=== PATIENT | male | born 2005 | race Caucasian/White ===

== ENCOUNTER 2025-03-31 21:59 | Emergency (ER) | payer SELFPAY ==
[~2025-03-31] VITALS: Ht 170.2 cm; Wt 81.8 kg
[2025-03-31 22:06] VITALS: TEMP 97.6
--- NOTE | 2025-03-31 22:50 | RADIOLOGY REPORT ---
CLINICAL INDICATION: ANKLE PAIN LEFT TECHNIQUE: DI ANKLE, COMPLETE(3VW MIN) Comparison: None FINDINGS/IMPRESSION: : There is no evidence of acute fracture or dislocation. Soft tissues are unremarkable.
[2025-03-31] MEDS: HYDROcodone/acetaminophen 10/325mg tab PO STA (23:21)
--- NOTE | 2025-03-31 23:41 | Physician Documentation ---
History of Present Illness ~ Chief Complaint: Back Pain Stated Complaint: BACK AND LEG/FALL Time Seen by MD: 23:40 Mode of Arrival: POV, Ambulatory HPI Patient presents to the emergency room for evaluation of back and foot pain. He was cleaning some spider webs up from a window fell onto his left heel in onto his butt. He has been having pain ever since. He is unable to bear weight on his foot took some ibuprofen with little benefit. Medication Reconciliation Allergies: Coded Allergies: No Known Allergies (Unverified , 03/31/25) Review of Systems ROS All review of systems negative except as per HPI Physical Exam Physical Exam Vital Signs: Temperature: 97.6, Source: Temporal, Heart Rate: 87, Respiratory Rate: 16, BP: 145/65, Pulse Oximetry: 99, Weight: 81.820 Physical Exam General: Patient is awake, alert, oriented x4 in no acute distress Head: Normocephalic and atraumatic. Eyes: Conjunctival normal. EOMI. PERRL. ENT: Mucous membranes moist. Neck: Supple, trachea is midline. Chest: Clear to auscultation bilaterally without rales, rhonchi, or wheezes. There is no accessory muscle use or retractions. Cardiac: RRR without murmurs, gallops, or rubs. Extremities: Normal strength. Normal range of motion. Tenderness to palpation to left heel with no appreciable swelling Back: No tenderness to palpation no CVA tenderness no step-offs Progress Results/Orders Results/Orders Orders - TIM MURDOCK MD Ankle, Complete(3vw Min) (03/31/25 22:23) Lumbar Spine Limited (03/31/25 00:06) Completed Orders - TIM MURDOCK MD Ankle, Complete(3vw Min) (03/31/25 22:23) Hydrocodone/Apap 10/325 ([place] 10/325mg (03/31/25 22:10) Ketorolac Trometh 15mg/Ml Vial (Toradol (03/31/25 23:50) Lumbar Spine Limited (03/31/25 00:06) Medications Received in ER Medications (Trade) Dose Ordered Sig/Kami Route PRN Reason Start Time Stop Time Status Last Admin Dose Admin ([place] 10/325mg tab) 1 tab ONCE STAT PO 03/31/25 22:10 03/31/25 22:12 DC 03/31/25 23:21 1 TAB Vital Signs 03/31/25 03/31/25 03/31/25 22:06 23:21 23:28 Temp 97.6 Pulse 87 Resp 15 16 16 B/P (MAP) 145/65 Pulse Ox 99 Medical Decision Making Findings Patient presents to the emergency room with back and heel pain as per HPI. Differentials include but are not limited to fractures, dislocations, soft tissue injury she, radiculopathy therefore x-rays performed which were reassuring. Patient appears comfortable but endorses significant pain. We will treat him for pain. Possibility of hairline fracture that I can not appreciate. The need to follow up with his doctor for re-evaluation one-week discussed. I do not suspect intra-abdominal injury/kidney injury for more the patient is describing where his pain is in his lower lumbar. I do not feel he requires a CT scan. I do not suspect cauda equina Departure Disposition: HOME / SELF CARE / HOMELESS Impression: Primary Impression: Lumbago Additional Impression: Heel pain Condition: Stable Discharge Instructions: Lumbosacral Strain Additional Instructions: Follow up with your doctor in one-week for consideration of repeating x-ray versus advanced imaging. Ice application may be of benefit. Ibuprofen and Tylenol may be taken together for pain. If this is insufficient I have provided some additional pain medications. Referrals: NO PRIMARY CARE PROVIDER (PCP) Prescriptions Hydrocodone Bit/Acetaminophen 5/325 MG ([place] 5/325 MG) 5 Mg/325 Mg Tablet 1 TAB PO Q4-6 hours PRN for pain, #12 TAB Prov: TIM MURDOCK MD 04/01/25 Education Educated: Patient Educated regarding: diagnosis, treatment, need for follow up Signature Scribe Signature: No scribe Attestation: The note accurately reflects work and decisions made by me.Tim Murdock MD 04/01/25 00:36 TIM MURDOCK MD Mar 31, 2025 23:41
[2025-04-01] MEDS ORDERED: HYDR-3965 PO (00:37)
[2025-04-01] MEDS: ketorolac trometh 15mg/ml vial 15 MG/ML ML IM ONE (00:40)
--- NOTE | 2025-04-01 00:45 | RADIOLOGY REPORT ---
INDICATION: back pain COMPARISON: None TECHNIQUE: 3 views of the lumbar spine were obtained. FINDINGS: There are 5 [id number] lumbar type vertebral bodies. The pedicles are intact. Sacroiliac joints are maintained. Mild superior endplate compression fracture L2 of indeterminate chronicity. Vertebral body heights are maintained. Disc spaces preserved. Overlying soft tissues are intact. Visualized bowel gas is nonobstructed. IMPRESSION: Mild superior endplate compression fracture of L2 of indeterminate chronicity. Correlate with point tenderness.
[2025-04-01 01:12] VITALS: BP 126/80; PULSE 80; RESP 18; O2SAT 99
== END 2025-04-01 01:17 | disposition home or self-care (01) ==
LOC: ER 22:01
DX: M54.50 Low back pain, unspecified (principal); M79.662 Pain in left lower leg
CPT/HCPCS: 72100; 73610; J1885; 96372; 99284; A6449